=== PATIENT | female | born 1945 | race Native Hawaiian/Other Pacific Islander ===

== ENCOUNTER 2019-10-17 23:36 | Observation (INO) | payer OTHER ==
[~2019-10-17] VITALS: Ht 157.5 cm; Wt 57.3 kg
[2019-10-17 23:59] VITALS: BP 191/86; TEMP 96.8
[2019-10-18] VITALS (8 sets, daily range): BP systolic 122–167; BP diastolic 46–68; TEMP 97.7–98.5; Ht 157.5 cm; Wt 57.3 kg
[2019-10-18 01:17] LABS: PLATELET COUNT 157 K/uL (152-353)
[2019-10-18 01:26] LABS: POTASSIUM 3.6 mmol/L (3.6-5.2); SODIUM 136 mmol/L (136-145)
[2019-10-18] MEDS ORDERED: FERROUS SULF325 M1 PO (05:08)
[2019-10-18] MEDS ORDERED: GLYBURIDE2.5 MG PO (05:11)
[2019-10-18] MEDS ORDERED: LOPRESSOR100 MG PO (05:13)
[2019-10-18] MEDS ORDERED: CYCLOBENZAPRINE5 MG PO (05:15)
[2019-10-18] MEDS ORDERED: COZAAR100 MG PO (05:18)
[2019-10-18] MEDS ORDERED: MECLIZINE25 MG PO (05:19)
[2019-10-18] MEDS ORDERED: HYDR25TA60 PO (05:21)
[2019-10-18] MEDS ORDERED: ESOMEPRAZOLE MA40 MG PO (05:22)
[2019-10-18] MEDS ORDERED: [UNRECOGNIZED DRUG - OTHER] PO (05:23)
[2019-10-18] MEDS ORDERED: GABA400C2 PO (05:25)
[2019-10-19] VITALS: BP 136/59; TEMP 98.4
[2019-10-19 03:58] VITALS: BP 126/47; TEMP 98.6
[2019-10-19 06:02] LABS: PLATELET COUNT 125 K/uL (152-353)
[2019-10-19 08:00] VITALS: BP 154/60; TEMP 97.7
[2019-10-19 12:00] VITALS: BP 165/56; TEMP 98
== END 2019-10-19 18:00 | disposition home or self-care (01) ==
LOC: ED 23:36 → MED/SURG 10-18 01:45
PROVIDERS: Emergency Medicine; ADMIT Internal Medicine Endocrinology, Diabetes & Metabolism
DX: R29.810 Facial weakness (principal); E11.42 Type 2 diabetes mellitus with diabetic polyneuropathy; K21.9 Gastro-esophageal reflux disease without esophagitis; I11.0 Hypertensive heart disease with heart failure; E61.1 Iron deficiency; E86.0 Dehydration; W18.39XA Other fall on same level, initial encounter; Y92.89 Other specified places as the place of occurrence of the external cause; Z79.899 Other long term (current) drug therapy; Z51.81 Encounter for therapeutic drug level monitoring; R41.82 Altered mental status, unspecified; R48.8 Other symbolic dysfunctions
CPT/HCPCS: 36415; 51702; 80048; 80053; 80307; 81000; 82550; 82553; 82962; 84484; 85027; 93005; 99220; 99285; G0378; J1644

== ENCOUNTER 2022-02-03 07:58 | Emergency (ER) | payer OTHER ==
[~2022-02-03] VITALS: Ht 157.5 cm; Wt 49.0 kg
[~2022-02-03 07:58] MED LIST: COZAAR100 MG PO; CYCLOBENZAPRINE5 MG PO; ESOMEPRAZOLE MA40 MG PO; FERROUS SULF325 M1 PO; GABA400C2 PO; GLYBURIDE2.5 MG PO; HYDR25TA60 PO; LOPRESSOR100 MG PO; MECLIZINE25 MG PO; [UNRECOGNIZED DRUG - OTHER] PO
[2022-02-03 08:00] VITALS: TEMP 97.8
[2022-02-03 09:19] LABS: PLATELET COUNT 131 K/uL (152-353)
[2022-02-03 09:27] LABS: POTASSIUM 3.7 mmol/L (3.6-5.2)
[2022-02-03 09:36] LABS: PARTIAL THROMBOPLASTIN TIME 31.1 SECONDS (24.5-33.6)
[2022-02-03] MEDS ORDERED: ASPIRIN LOW81 MG PO (10:22)
[2022-02-03] MEDS ORDERED: LANTUS100 UNIT/M SC (10:22)
[2022-02-03] MEDS ORDERED: ROPI5T PO (10:22)
[2022-02-03] MEDS ORDERED: CRANBERR5 PO (10:23)
[2022-02-03] MEDS ORDERED: VITAMIN D32000 UNI3 PO (10:23)
[2022-02-03] MEDS ORDERED: CYAN100010 IM (10:23)
[2022-02-03 11:50] VITALS: BP 104/50
== END 2022-02-03 12:40 | disposition short-term general hospital (02) ==
LOC: ED 07:58
PROVIDERS: Emergency Medicine Emergency Medical Services
DX: J44.1 Chronic obstructive pulmonary disease with (acute) exacerbation (principal); Z11.52 Encounter for screening for COVID-19
CPT/HCPCS: 36600; 80053; 82805; 83735; 84484; 85027; 85610; 85730; 87040; 87502; 87635; 87651; 93005; 94664; 96360; 96365; 96375; 99284; J0696; J2930; U0003

== ENCOUNTER 2022-02-20 06:42 | Emergency (ER) | payer OTHER ==
[~2022-02-20] VITALS: Ht 157.5 cm; Wt 49.0 kg
[~2022-02-20 06:42] MED LIST changes: +ASPIRIN LOW81 MG PO; +CRANBERR5 PO; +CYAN100010 IM; +LANTUS100 UNIT/M SC; +ROPI5T PO; +VITAMIN D32000 UNI3 PO
[2022-02-20 07:05] VITALS: TEMP 98
[2022-02-20 07:50] LABS: PLATELET COUNT 99 K/uL (152-353)
[2022-02-20 08:03] LABS: POTASSIUM 3.6 mmol/L (3.6-5.2)
[2022-02-20 10:51] VITALS: BP 158/66
== END 2022-02-20 11:00 | disposition still patient (30) ==
LOC: ED 06:42
PROVIDERS: Emergency Medicine Emergency Medical Services
DX: R06.09 Other forms of dyspnea (principal); U07.1 COVID-19; J12.82 Pneumonia due to coronavirus disease 2019
CPT/HCPCS: 36600; 80053; 82805; 83605; 83735; 83880; 84484; 85027; 85379; 85610; 87040; 87635; 96360; 96365; 96375; 99284; J0696; J2270; U0003